=== PATIENT | female | born 1955 | race Caucasian/White ===

== ENCOUNTER 2023-10-30 07:59 | Outpatient (REF) | payer OTHER, SELFPAY ==
[2023-10-30 08:51] LABS: Estimated Average Glucose 100 mg/dL; Hemoglobin A1c % 5.1 % (<6.0)
[2023-10-30 09:30] LABS: Alanine Aminotransferase 36 U/L (0-31); Albumin Level 3.9 g/dL (3.5-5.0); Alkaline Phosphatase 94 U/L (39-117); Anion Gap 12 (12-20); Aspartate Amino Transferase 39 U/L (5-31); Bilirubin Total 0.3 mg/dL (0.0-1.0); Blood Urea Nitrogen 14 mg/dL (9-16); Calcium 9.3 mg/dL (8.4-10.2); Carbon Dioxide 25 mmol/L (22-29); Chloride 106 mmol/L (96-108); Cholesterol 290 mg/dL (<200); Estimated Glomerular Filt Rate > 60; Glucose Fasting 100 mg/dL (60-99); HDL Cholesterol 58 mg/dL (>40); LDL Cholesterol Calculated 203 mg/dL (<100); Potassium 4.2 mmol/L (3.3-5.1); Sodium 139 mmol/L (135-145); Triglycerides 148 mg/dL (<150)
[2023-10-30 09:42] LABS: Vitamin B12 335 pg/mL (200-900)
[2023-10-30 09:46] LABS: Free T4 (Free Thyroxine) 0.89 ng/dL (0.71-1.85); Thyroid Stimulating Hormone 1.93 uIU/mL (0.32-4.0); Vitamin D 25-OH Total 14.3 ng/mL (>30)
== END 2023-10-30 08:00 | disposition home or self-care (01) ==
LOC: HO.LAB 07:59
PROVIDERS: PCP Physician Assistant; Visit Provider Psychiatry & Neurology Psychiatry
DX: F32.2 Major depressive disorder, single episode, severe without psychotic features (principal)
CPT/HCPCS: 36415; 80053; 80061; 82306; 82607; 83036; 84439; 84443

== ENCOUNTER → 2023-11-07 09:45 | Outpatient (BNV) | payer OTHER, SELFPAY | PROVIDERS: Visit Provider Psychiatry & Neurology Psychiatry | DX: F33.1 Major depressive disorder, recurrent, moderate (principal); F41.1 Generalized anxiety disorder; F43.10 Post-traumatic stress disorder, unspecified; F17.200 Nicotine dependence, unspecified, uncomplicated | CPT/HCPCS: 90792; 99213 ==

== ENCOUNTER 2023-11-13 09:45 | Outpatient (RCR) | payer OTHER, SELFPAY ==
[2023-10-24 11:59] VITALS: BP 135/99; PULSE 70; RESP 16; TEMP 36.4
--- NOTE | 2023-10-24 12:44 | PC.NURSE ---
Patient is alert and oriented x 4, pleasant, cooperative, and engaging. PMH includes trauma, depression, anxiety, PTSD. Patient reports I'm relieved to be starting the road to recovery . Pt is currently living alone with support of family (sister and friend). Pt admits to decreased motivation recently and is currently on HERMINIA from work. Patients states drinks on occasion approximately 2-3 beers if she goes out and denies drug use. Medications reviewed and reconciled with patient and pharmacy. Patient reports taking medications as prescribed. Patent will need an out patient psychiatrist to [facility]. Patient currently denies SI/HI, safety plan reviewed and copy provided to patient.
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
--- NOTE | 2023-10-30 18:41 | HO.PHP ---
Client's case has been opened and reviewed in treatment team.
--- NOTE | 2023-11-04 22:54 | HO.PHPPROGNO ---
Subjective Subjective Date of Service: 11/04/23 Reason For Visit: MDD,PTSD Interim History: Patient seen for follow-up. She denies any acute issues or concerns. She reports that she just ran out of Prozac and will be needing a refill. She also says she doesn't feel her medications are working and some of them are causing her ill effects (eg Wellbutrin reportedly causing dry mouth). She continues to experiences a lot of anxiety. She says she think the Prozac has been working for a couple of years now. She also has a lot of chronic pain issues. She denies any thoughts of harming herself. We review her treatment history. She has not had an SNRI trial and agrees to start on duloxetine. Medication Compliance: Yes Side effects from medications: Yes (as noted above) Attending Groups: Yes Review of Systems Acute medical concerns: No Mental Status Exam Mental Status Exam Narrative: Alert, oriented, in no acute distress. Calm, cooperative, engaged. No psychomotor agitation or neurovegetative retardation. Eye contact maintained. Mood depressed, affect constricted. Speech normal. Thought process linear, coherent. Thought content related to stressors, transient hopelessness, denies SI or HI. No paranoia or delusional content elicited. No evidence of psychosis. Insight and judgment impaired. Assessment & Plan Assessment & Plan (1) Major depressive disorder, recurrent episode, moderate: Status: Acute Code(s): F33.1 - Major depressive disorder, recurrent, moderate (2) Generalized anxiety disorder: Status: Acute Code(s): F41.1 - Generalized anxiety disorder (3) PTSD (post-traumatic stress disorder): Status: Acute Code(s): F43.10 - Post-traumatic stress disorder, unspecified Plan start duloxetine 30 mg qd taper fluoxetine to 40 mg qAM continue Wellbutrin XL 300 mg qAM for now Patient educated on: diagnosis and medication risk/benefits Informed Consent: understands Reason for contiued partial hosp. stay Substantial Risk for: inability to function, rapid decompensation and med/psych decompensation Certification I certify that partial hospital treatment is medically necessary due to the symptoms and problems resulting from the patient's mental illness and the failure to treat the patient at the partial hospital level of care would likely result in the patient requiring inpatient psychiatric care which could not be prevented at a less intensive level of care. Total time managing care of this patient today ____ minutes. Discharge Plan Discharge Attending provider: Jenny Goff Additional Instructions: Lorna's OP intake appointment is at [facility], [address] [place] [address] on November 10, 2023 at 11 AM with Ana Gayle in person. Lorna's med provider appointment will be held on November 27, 2023 at 9 AM with Don Nelson via telehealth. Medications: New duloxetine 30 mg capsule,delayed release(DR/EC) 30 mg PO DAILY Qty: 30 0RF fluoxetine 20 mg capsule 40 mg PO DAILY Qty: 30 0RF ergocalciferol (vitamin D2) [Vitamin D2] 1,250 mcg (50,000 unit) capsule 1,250 mcg PO QWEEK Qty: 6 0RF Continued bupropion HCl 300 mg tablet extended release 24 hr 300 mg PO DAILY trazodone 50 mg tablet 50 - 100 mg PO BEDTIME albuterol sulfate [ProAir HFA] 90 mcg/actuation HFA aerosol inhaler 90 mcg inhalation NEEDED PRN (Reason: Shortness Of Breath) fluoxetine 20 mg capsule 60 mg PO DAILY fluticasone propionate [Flovent HFA] 110 mcg/actuation HFA aerosol inhaler 110 mcg inhalation 1XD MDD 1 PRN (Reason: Shortness Of Breath) Stand Alone Forms: Patient Portal Discharge page
--- NOTE | 2023-11-13 17:52 | P.PNPSP_ITS ---
Subjective Subjective Date of Service: 11/13/23 Reason For Visit: MDD,PTSD Interim History: Patient seen for follow-up, anticipating discharge at the end of program today.? Reports no acute issues or concerns. Medication compliant, medications well- tolerated. Denies any adverse effects.? She reports doing very good , and that she got a lot out of my time here . She anticipates returning to work after next week, has a number of errands and other things to attend to in [facility] upcoming days. She has a telehealth appointment scheduled for 11/27. Mood is euthymic good, having much less anxiety now .? She shares that she didnt realize how much her anxiety affects her breathing, and is working on some mindfulness techniques, focused breathing. She denies depressive syjmtpoms, denies any hopelessness or SI. Denies thoughts of harming self or others at this time. Denies any aggressive ideation or HI. Denies any paranoia or AH or VH. Sleep, appetite, energy stable. Medication Compliance: Yes Side effects from medications: No Attending Groups: Yes Review of Systems Acute medical concerns: No Mental Status Exam Mental Status Exam Narrative: Alert, oriented, in no acute distress. Calm, cooperative. Mood stable, affect appropriate. Speech normal. Thought process linear, coherent. Thought content related to stressors, denies any helplessness, hopelessness or SI.? No aggressive ideation or HI. No paranoia or delusional content elicited. No evidence of psychosis. Insight and judgment intact. Assessment & Plan Assessment & Plan (1) Major depressive disorder, recurrent episode, moderate: Status: Acute Code(s): F33.1 - Major depressive disorder, recurrent, moderate (2) Generalized anxiety disorder: Status: Acute Code(s): F41.1 - Generalized anxiety disorder (3) PTSD (post-traumatic stress disorder): Status: Acute Code(s): F43.10 - Post-traumatic stress disorder, unspecified (4) Nicotine dependence: Status: Acute Code(s): F17.200 - Nicotine dependence, unspecified, uncomplicated Plan Discharge from [facility] continue regular medications will defer further medication management to outpatient provider Refills sent to pharmacy Patient educated on: diagnosis and medication risk/benefits Informed Consent: understands Reason for contiued partial hosp. stay Substantial Risk for: stable for discharge Certification I certify that partial hospital treatment is medically necessary due to the symptoms and problems resulting from the patient's mental illness and the fail ure to treat the patient at the partial hospital level of care would likely result in the patient requiring inpatient psychiatric care which could not be prevented at a less intensive level of care. Total time managing care of this patient today _30___ minutes. Discharge Plan Discharge Attending provider: Jenny Goff Additional Instructions: Lorna's OP intake appointment is at [address] on November 10, 2023 at 11 AM with Ana Gayle in person. Lorna's med provider appointment will be held on November 27, 2023 at 9 AM with Don Nelson via telehealth. Medications: New duloxetine 30 mg capsule,delayed release(DR/EC) 30 mg PO DAILY Qty: 30 0RF ergocalciferol (vitamin D2) [Vitamin D2] 1,250 mcg (50,000 unit) capsule 1,250 mcg PO QWEEK Qty: 6 0RF duloxetine 60 mg capsule,delayed release(DR/EC) 60 mg PO DAILY Qty: 30 0RF Continued bupropion HCl 300 mg tablet extended release 24 hr 300 mg PO DAILY trazodone 50 mg tablet 50 - 100 mg PO BEDTIME albuterol sulfate [ProAir HFA] 90 mcg/actuation HFA aerosol inhaler 90 mcg inhalation NEEDED PRN (Reason: Shortness Of Breath) fluticasone propionate [Flovent HFA] 110 mcg/actuation HFA aerosol inhaler 110 mcg inhalation 1XD MDD 1 PRN (Reason: Shortness Of Breath) Changed fluoxetine 20 mg capsule 20 mg PO DAILY Qty: 30 0RF Discontinued fluoxetine 20 mg capsule 60 mg PO DAILY Stand Alone Forms: Patient Portal Discharge page Patient Education: Depression (DC)
== END 2023-11-13 23:59 | disposition home or self-care (01) ==
LOC: HO.PHPA 09:45
PROVIDERS: Visit Provider Psychiatry & Neurology Psychiatry
DX: F33.1 Major depressive disorder, recurrent, moderate (principal); F41.1 Generalized anxiety disorder; F43.10 Post-traumatic stress disorder, unspecified; Z79.899 Other long term (current) drug therapy
CPT/HCPCS: 90791; 90853